=== PATIENT | male | born 1985 | race Two or more races ===

== ENCOUNTER 2023-07-10 13:27 | Emergency (ER) | payer OTHER ==
[2023-07-10 13:47] VITALS: BP 134/79; PULSE 85; RESP 16; TEMP 98.6; BMI 26.5
[2023-07-10] MEDS ORDERED: MAG HYDROX/AL HYDROX/SIMETH 30 ML UNIT-DOSE CUP PO ONE (14:02)
[2023-07-10] MEDS ORDERED: FAMOTIDINE 20 MG TABLET PO ONE (14:02)
[2023-07-10] MEDS ORDERED: FAMOTIDINE 20 MG TABLET ONE (14:18)
[2023-07-10] MEDS ORDERED: MAG HYDROX/AL HYDROX/SIMETH 30 ML UNIT-DOSE CUP ONE (14:19)
[2023-07-10 14:31] LABS: BASO % 0.8 % (0-2.0); EOS % 0.8 % (0-4.5); HEMATOCRIT 52.3 % (35.4-49); LYMPH % 25.1 % (8-40); MCH 26.9 pg (25.7-33.7); MCHC 32.4 g/dl (32.0-35.9); MEAN CELL VOLUME 82.9 fl (80-96); MEAN PLT VOLUME 7.8 fl (7.5-11.1); MONO % 10.7 % (3.8-10.2); NEUT % 62.6 % (42.8-82.8); PLATELET COUNT 231 10^3/uL (134-434); RDW 14.2 % (11.9-15.9); WHITE BLOOD COUNT 10.9 K/mm3 (4.0-10.0)
[2023-07-10 15:02] LABS: POTASSIUM 4.3 mmol/L (3.5-5.1)
[2023-07-10 15:04] LABS: CALCIUM 9.4 mg/dL (8.5-10.1)
[2023-07-10 15:05] LABS: ALBUMIN 3.8 g/dl (3.4-5.0); BLOOD UREA NITROGEN 12.1 mg/dL (7-18)
[2023-07-10 15:08] LABS: CREATININE 0.9 mg/dL (0.55-1.3)
[2023-07-10 15:09] LABS: BILIRUBIN,TOTAL 0.3 mg/dL (0.2-1); TOT PROT 7.6 g/dl (6.4-8.2)
== END 2023-07-10 16:10 | disposition home or self-care (01) ==
LOC: JER 13:27
DX: R10.12 Left upper quadrant pain (principal); R50.9 Fever, unspecified; K59.00 Constipation, unspecified
CPT/HCPCS: 36415; 71046-TC-FY; 74019-TC-FY; 80053; 83690; 85025; 99284-25